=== PATIENT | male | born 1995 | race Hispanic/Latino ===

== ENCOUNTER 2017-05-12 16:53 | Emergency (ER) | payer SELFPAY ==
[~2017-05-12] VITALS: Ht 175.3 cm; Wt 113.4 kg
[~2017-05-12 16:53] MED LIST: AMOX500C2 PO; FAMO-119 PO; ONDA8TAB9 PO
[2017-05-12] MEDS ORDERED: ONDANSETRON 4 MG/2 ML (SDV) Z0FRAN ONE (17:06)
[2017-05-12] MEDS ORDERED: ONDANSETRON 4 MG/2 ML (SDV) Z0FRAN IVP ONE (17:15)
[2017-05-12] MEDS ORDERED: NS IV 1000 ML 1,000 ML IV ONE ×2 (17:57→18:53)
[2017-05-12] MEDS ORDERED: HYOSCYAMINE 0.125 MG (LEVSIN) TAB SL ONE (18:00)
[2017-05-12 18:03] LABS: BASOPHILS % (AUTO) 0 % (0-10); EOSINOPHILS # (AUTO) 0.2 10^3/uL (0.0-0.3); EOSINOPHILS % (AUTO) 2 % (0-10); LYMPHOCYTES # (AUTO) 1.6 X 10^3 (1.0-4.0); LYMPHOCYTES % (AUTO) 19 % (12-44); MEAN CORPUSCULAR HEMOGLOBIN 29 PG (25-34); MEAN CORPUSCULAR HGB CONC 33 G/DL (32-36); MEAN CORPUSCULAR VOLUME 88 FL (80-99); MEAN PLATELET VOLUME 11.7 FL (7.4-10.4); MONOCYTES # (AUTO) 0.8 X 10^3 (0.0-1.0); MONOCYTES % (AUTO) 9 % (0-12); NEUTROPHILS % (AUTO) 70 % (42-75); PLATELET COUNT 290 10^3/uL (130-400); RED BLOOD COUNT 5.46 10^6/uL (4.35-5.85); RED CELL DISTRIBUTION WIDTH 12.8 % (10.0-14.5); WHITE BLOOD COUNT 8.6 10^3/uL (4.3-11.0)
[2017-05-12 18:04] LABS: BILIRUBIN,URINE NEGATIVE (NEGATIVE); KETONES,URINE NEGATIVE (NEGATIVE); LEUKOCYTE ESTERASE ,URINE NEGATIVE (NEGATIVE); NITRITE,URINE NEGATIVE (NEGATIVE); PH,URINE 6 (5-9); PROTEIN,URINE 2+ (NEGATIVE); UROBILINOGEN,URINE NORMAL (NORMAL)
--- NOTE | 2017-05-12 18:05 | ED GI ---
General Chief Complaint: Abdominal/GI Problems Stated Complaint: VOMITING Nursing Triage Note: to ER with reports of nausea, vomiting, diarrhea and abdominal discomfort. Patient reports that it started yesterday. Sepsis Screen: No Definite Risk Source of Information: Patient Exam Limitations: No Limitations (TY COTE) History of Present Illness Time Seen By Provider: 17:33 Initial Comments Apollo Stephens is a 21 year old male presenting to the ED with vomiting and diarrhea. He reports that last night around 8 or 9 he got a headache and his nose started bleeding. The bleeding resolved on its own. He then developed light -headedness, nausea, and vomiting. During the night he vomited repeatedly and had subjective fever with chills and sweats. During the day today he has continued to vomit and has started having diarrhea. He states his muscles feel achy and weak and can't keep food or liquid down. He reports a sharp pain in his left side, especially when vomiting. He had an asthma attack last night during the vomiting and has had to use his inhaler 3 or 4 times since then for shortness of breath. He had some ibuprofen last night, which helped some. He has not had any medications except his inhaler today. He reports eating dinner last night around 5:30 at the [employer] and having fish. He denies urinary symptoms. (TY COTE) Allergies and Home Medications Allergies Coded Allergies: No Known Drug Allergies (Unverified , 09/23/15) Home Medications Ondansetron 4 Mg Tab.rapdis, 4 MG SL Q4H PRN for NAUSEA/VOMITING-1ST LINE, #10 Prescribed by: LEANN HEDRICK on 05/12/17 718 Review of Systems Constitutional: chills, diaphoresis, dizziness, fever (subjective), weakness ( subjective) EENTM: See HPI, Other (nose bleed last night, not bleeding currently) Respiratory: See HPI, Shortness of Air Cardiovascular: Lightheadedness Gastrointestinal: Denies Abdomen Distended, Abdominal Pain (discomfort attributed to vomiting, sharp pain in left side when vomiting) Genitourinary: Denies Burning, Denies Frequency, Flank Pain, Denies Pain Musculoskeletal: other (generalized muscle ache and weakness) Skin: no symptoms reported Psychiatric/Neurological: Tremors (has essential tremor treated with propranolol, worse since becoming sick) Endocrine: No Symptoms Reported Hematologic/Lymphatic: No Symptoms Reported (TY COTE) Past Ggelark-Gbssgh-Fxhtxb Hx Patient Social History Alcohol Use: Denies Use Recreational Drug Use: No Smoking Status: Current Everyday Smoker Type Used: Cigarettes 2nd Hand Smoke Exposure: Yes Recent Foreign Travel: No Contact w/Someone Who Travel: No Recent Infectious Disease Expo: Yes Recent Hopitalizations: No Physical Abuse: No Sexual Abuse: No (TY COTE) Immunizations Up To Date Tetanus Booster (TDap): Less than 5yrs (TY COTE) Seasonal Allergies Seasonal Allergies: No (TY COTE) Surgeries History of Surgeries: No (TY COTE) Respiratory History of Respiratory Disorde: Yes Respiratory Disorders: Asthma (TY COTE) Cardiovascular History of Cardiac Disorders: No (TY COTE) Neurological History of Neurological Disord: Yes (essential tremor) (TY COTE) Gastrointestinal History of Gastrointestinal Di: No (TY COTE) Musculoskeletal History of Musculoskeletal Dis: No (TY COTE) Endocrine History of Endocrine Disorders: No (TY COTE) Cancer History of Cancer: No (TY COTE) Psychosocial History of Psychiatric Problem: No Suicide Risk Score: 0 (TY COTE) Integumentary History of Skin or Integumenta: No (TY COTE) Blood Transfusions History of Blood Disorders: No (TY COTE) Family Medical History Significant Family History: Asthma (siblings), Other Conditions/Hx (mother's side of family including mother and siblings have essential tremor) (TY COTE) Physical Exam Vital Signs VS - Last 72 Hours, by Label 05/12/17 05/12/17 05/12/17 17:20 19:00 20:35 Temp 98.6 99.0 Pulse 88 83 66 Resp 18 18 16 B/P (MAP) 128/86 128/86 Pulse Ox 97 95 94 O2 Delivery Room Air Room Air Room Air (LEANN PARKER MD) Vital Signs Capillary Refill : Less Than 3 Seconds (TY COTE) General Appearance: WD/WN, moderate distress HEENT: other (mucus membranes appear dry, pharynx evaluation deferred due to severe nausea) Respiratory: lungs clear, normal breath sounds, no respiratory distress Cardiovascular: regular rate, rhythm, no gallop, no JVD, no murmur, tachycardia (mild, heart rate in 90s) Gastrointestinal: normal bowel sounds, soft, No distended, No guarding, No rebound, tenderness (left side and lateral LUQ) Back: no CVA tenderness Neurologic/Psychiatric: alert, normal mood/affect, oriented x 3 Skin: normal color, warm/dry (TY COTE) Progress/Results/Core Measures Results/Orders Lab Results Laboratory Tests Test 05/12/17 17:20 Range/Units White Blood Count 8.6 4.3-11.0 10^3/uL Red Blood Count 5.46 4.35-5.85 10^6/uL Hemoglobin 15.9 13.3-17.7 G/DL Hematocrit 48 40-54 % Mean Corpuscular Volume 88 80-99 FL Mean Corpuscular Hemoglobin 29 25-34 PG Mean Corpuscular Hemoglobin Concent 33 32-36 G/DL Red Cell Distribution Width 12.8 10.0-14.5 % Platelet Count 290 130-400 10^3/uL Mean Platelet Volume 11.7 H 7.4-10.4 FL Neutrophils (%) (Auto) 70 42-75 % Lymphocytes (%) (Auto) 19 12-44 % Monocytes (%) (Auto) 9 0-12 % Eosinophils (%) (Auto) 2 0-10 % Basophils (%) (Auto) 0 0-10 % Neutrophils # (Auto) 6.0 1.8-7.8 X 10^3 Lymphocytes # (Auto) 1.6 1.0-4.0 X 10^3 Monocytes # (Auto) 0.8 0.0-1.0 X 10^3 Eosinophils # (Auto) 0.2 0.0-0.3 10^3/uL Basophils # (Auto) 0.0 0.0-0.1 10^3/uL Urine Color YELLOW Urine Clarity CLEAR Urine pH 6 5-9 Urine Specific [place] 1.015 L 1.016-1.022 Urine Protein 2+ H NEGATIVE Urine Glucose (UA) NEGATIVE NEGATIVE Urine Ketones NEGATIVE NEGATIVE Urine Nitrite NEGATIVE NEGATIVE Urine Bilirubin NEGATIVE NEGATIVE Urine Urobilinogen NORMAL NORMAL MG/DL Urine Leukocyte Esterase NEGATIVE NEGATIVE Urine RBC (Auto) NEGATIVE NEGATIVE Urine RBC NONE /HPF Urine WBC NONE /HPF Urine Squamous Epithelial Cells 0-2 /HPF Urine Crystals NONE /LPF Urine Bacteria NONE /HPF Urine Casts NONE /LPF Urine Mucus NEGATIVE /LPF Urine Culture Indicated NO Sodium Level 142 135-145 MMOL/L Potassium Level 4.0 3.6-5.0 MMOL/L Chloride Level 103 98-107 MMOL/L Carbon Dioxide Level 28 21-32 MMOL/L Anion Gap 11 5-14 MMOL/L Blood Urea Nitrogen 11 7-18 MG/DL Creatinine 1.04 0.60-1.30 MG/DL Estimat Glomerular Filtration Rate > 60 BUN/Creatinine Ratio 11 Glucose Level 120 H 70-105 MG/DL Calcium Level 10.0 8.5-10.1 MG/DL Magnesium Level 2.2 1.8-2.4 MG/DL Total Bilirubin 0.4 0.1-1.0 MG/DL Aspartate Amino Transf (AST/SGOT) 27 5-34 U/L Alanine Aminotransferase (ALT/SGPT) 46 0-55 U/L Alkaline Phosphatase 125 40-136 U/L Total Protein 8.6 H 6.4-8.2 GM/DL Albumin 4.9 H 3.2-4.5 GM/DL Lipase 24 8-78 U/L (LEANN PARKER MD) My Orders Orders - LEANN PARKER MD Ondansetron Injection (Zofran Injectio (05/12/17 17:06) Cbc With Automated Diff (05/12/17 17:57) Comprehensive Metabolic Panel (05/12/17 17:57) Magnesium (05/12/17 17:57) Saline Lock/Iv-Start (05/12/17 17:57) Ns Iv 1000 Ml (Sodium Chloride 0.9%) (05/12/17 17:57) Ua Culture If Indicated (05/12/17 17:59) Hyoscyamine Sl Tablet (Levsin Sl Tablet) (05/12/17 18:00) Lipase (05/12/17 18:22) Famotidine Injection (Pepcid Injection) (05/12/17 18:30) Promethazine Injection (Phenergan Injec (05/12/17 18:30) Promethazine Injection (Phenergan Injec (05/12/17 18:22) Ns Iv 1000 Ml (Sodium Chloride 0.9%) (05/12/17 18:53) Ketorolac Injection (Toradol Injection) (05/12/17 19:00) (LEANN PARKER MD) Medications Given in ED (LEANN PARKER MD) Vital Signs/I&O Vital Sign - Last 12Hours 05/12/17 05/12/17 05/12/17 17:20 19:00 20:35 Temp 98.6 99.0 Pulse 88 83 66 Resp 18 18 16 B/P (MAP) 128/86 128/86 Pulse Ox 97 95 94 O2 Delivery Room Air Room Air Room Air (LEANN PARKER MD) Blood Pressure Mean: 100 Progress Note #1: Time: 18:39 Progress Note This patient was seen, interviewed, and examined along with GEN Rashid. I agree with her history and exam. On my exam patient was found to be mildly ill-appearing. Head was normal. Oropharynx was slightly dry. Lungs were clear to auscultation bilaterally. Heart was regular rate and rhythm without murmur. Abdomen was soft with present but decreased bowel sounds. Left upper quadrant and left flank was tender to palpation. Patient also complained of some musculoskeletal pain in his left back and shoulder worsening in recent days. This area is tender to palpation. He also complains of generalized myalgias since last night. Patient received Zofran 8 mg IV for treatment of nausea. He received Levsin for abdominal discomfort and diarrhea. He vomited shortly after receiving the Levsin. Pepcid and Phenergan will be given for further treatment of GI symptoms. Labs are pending. A liter of IV fluids is infusing. Progress Note #2: Time: 18:53 Progress Note Care of this patient is being transitioned to Kelli Cartwright APRN at this time. Patient is receiving IV fluids. A second bag of normal saline will be administered before dismissal. Toradol will be given for his pain. A prescription for Zofran will be provided. (LEANN PARKER MD) Progress Note : Time: 21:00 Progress Note Patient reports mild left upper quadrant pain, nausea has improved. Overall he does feel that he is doing better. Abdominal exam patient has positive bowel sounds 4 quadrants, negative rebound, negative Watson sign, trace tenderness with deep palpation on the right upper quadrant. No tenderness through the remaining quadrants. Discharge planning discussed with the patient, all questions answered. (KELLI CARTWRIGHT) Departure Impression Impression: Primary Impression: Nausea vomiting and diarrhea Additional Impressions: Left sided abdominal pain Headache Qualified Codes: R51 - Headache Disposition: 01 HOME, SELF-CARE Condition: Improved Departure-Patient Inst. Decision time for Depature: 18:55 (LEANN PARKER MD) Referrals: NO,LOCAL PHYSICIAN (PCP/Family) Primary Care Physician Patient Instructions: Acute Abdomen (Belly Pain), Adult (DC) Add. Discharge Instructions: Consume only clear liquids tonight. Start with frequent sips. Gradually advance your diet with small quantities of bland food tomorrow as tolerated. You may use the Zofran (ondansetron) as prescribed for nausea and vomiting. Antacid therapy for the next week or 2 is also suggested. You may use Pepcid ( famotidine) or omeprazole [id number]. Follow-up with your primary care provider or return to the emergency room if symptoms worsen or you are not improving as expected. All discharge instructions reviewed with patient and/or family. Voiced understanding. Scripts Ondansetron (Zofran Odt) 4 Mg Tab.rapdis 4 MG SL Q4H Y for NAUSEA/VOMITING-1ST LINE, #10 TAB Prov: LEANN PARKER MD 05/12/17 TY COTE May 12, 2017 18:05 LEANN PARKER MD May 12, 2017 18:41 KELLI CARTWRIGHT May 12, 2017 20:27
[2017-05-12 18:13] LABS: SQUAMOUS EPITHELIAL CELL,UR 0-2 /HPF
[2017-05-12] MEDS ORDERED: PROMETHAZINE INJ 25 MG/ML (PHENERGAN) AMP ONE (18:22)
[2017-05-12 18:23] LABS: ALANINE AMINOTRANSFERASE 46 U/L (0-55); ALBUMIN 4.9 GM/DL (3.2-4.5); ANION GAP 11 MMOL/L (5-14); ASPARTATE AMINO TRANSFERASE 27 U/L (5-34); BILIRUBIN,TOTAL 0.4 MG/DL (0.1-1.0); BLOOD UREA NITROGEN 11 MG/DL (7-18); BUN/CREATININE RATIO 11; CARBON DIOXIDE 28 MMOL/L (21-32); CHLORIDE 103 MMOL/L (98-107); CREATININE SERUM 1.04 MG/DL (0.60-1.30); GFR ESTIMATED > 60; GLUCOSE 120 MG/DL (70-105); MAGNESIUM 2.2 MG/DL (1.8-2.4); SODIUM 142 MMOL/L (135-145); TOTAL PROTEIN 8.6 GM/DL (6.4-8.2)
[2017-05-12] MEDS ORDERED: FAMOTIDINE 20MG/2ML IV (PEPCID) IVP ONE (18:30)
[2017-05-12] MEDS ORDERED: PROMETHAZINE INJ 25 MG/ML (PHENERGAN) AMP IVP ONE (18:30)
[2017-05-12] MEDS ORDERED: ONDA4TAB8 SL (18:57)
[2017-05-12 19:00] VITALS: BP 128/86
[2017-05-12] MEDS ORDERED: KETOROLAC 30 MG/ML VIAL IVP ONE (19:00)
[2017-05-12] MEDS ORDERED: RX-ONDANSETRON 4 MG ODT (ZOFRAN) PPK #4 PO STA (20:29)
[2017-05-12 20:35] VITALS: BP 123/73
== END 2017-05-12 20:33 | disposition home or self-care (01) ==
LOC: EDUNIT# 16:53 → ER 16:55
DX: R11.2 Nausea with vomiting, unspecified (principal); R19.7 Diarrhea, unspecified; R10.12 Left upper quadrant pain; R51 Headache; J45.909 Unspecified asthma, uncomplicated; F17.210 Nicotine dependence, cigarettes, uncomplicated
CPT/HCPCS: 36415; 80053; 81000; 83690; 83735; 85025; 96361; 96374; 96375

== ENCOUNTER 2018-06-08 16:24 | Emergency (ER) | payer SELFPAY ==
[~2018-06-08] VITALS: Ht 175.3 cm; Wt 106.6 kg
[~2018-06-08 16:24] MED LIST changes: +ONDA4TAB8 SL
[2018-06-08] MEDS ORDERED: LACTATED RINGERS 1,000 ML IV ONE (18:31)
[2018-06-08 18:45] LABS: BILIRUBIN,URINE NEGATIVE (NEGATIVE); CLARITY,URINE CLEAR; COLOR,URINE YELLOW; GLUCOSE, URINE (UA) NEGATIVE (NEGATIVE); KETONES,URINE 1+ (NEGATIVE); LEUKOCYTE ESTERASE ,URINE 1+ (NEGATIVE); NITRITE,URINE NEGATIVE (NEGATIVE); PH,URINE 7 (5-9); PROTEIN,URINE 2+ (NEGATIVE); UROBILINOGEN,URINE 8 MG/DL (NORMAL)
[2018-06-08] MEDS ORDERED: ONDANSETRON 4 MG/2 ML (SDV) Z0FRAN IVP ONE (18:45)
[2018-06-08 18:52] LABS: BASOPHILS % (AUTO) 1 % (0-10); EOSINOPHILS # (AUTO) 0.3 10^3/uL (0.0-0.3); EOSINOPHILS % (AUTO) 5 % (0-10); HEMATOCRIT 46 % (40-54); HEMOGLOBIN 15.5 G/DL (13.3-17.7); LYMPHOCYTES # (AUTO) 1.6 X 10^3 (1.0-4.0); LYMPHOCYTES % (AUTO) 21 % (12-44); MEAN CORPUSCULAR HEMOGLOBIN 29 PG (25-34); MEAN CORPUSCULAR HGB CONC 34 G/DL (32-36); MEAN CORPUSCULAR VOLUME 87 FL (80-99); MEAN PLATELET VOLUME 11.2 FL (7.4-10.4); MONOCYTES # (AUTO) 0.7 X 10^3 (0.0-1.0); MONOCYTES % (AUTO) 9 % (0-12); NEUTROPHILS # (AUTO) 4.8 X 10^3 (1.8-7.8); NEUTROPHILS % (AUTO) 65 % (42-75); PLATELET COUNT 315 10^3/uL (130-400); RED BLOOD COUNT 5.31 10^6/uL (4.35-5.85); RED CELL DISTRIBUTION WIDTH 12.7 % (10.0-14.5); WHITE BLOOD COUNT 7.4 10^3/uL (4.3-11.0)
[2018-06-08 18:54] LABS: WBC,URINE 0-2 /HPF
[2018-06-08 18:55] VITALS: BP_SYST 130; BP_SYST 133; BP_SYST 138; BP_DIAS 75; BP_DIAS 82; BP_DIAS 98
--- NOTE | 2018-06-08 19:09 | Diagnostic Imaging Report ---
INDICATION: Cough with nausea and vomiting. PA and lateral chest. FINDINGS: The lungs are well aerated and clear. Heart is not enlarged. No pulmonary edema. No pneumothorax or pleural effusion. No bony abnormalities. IMPRESSION: Normal PA and lateral chest. Dictated by: Dictated on workstation # [id number]
--- NOTE | 2018-06-08 19:14 | ED General ---
General Chief Complaint: Cough/Cold/Flu Symptoms Stated Complaint: COUGH, V/D Nursing Triage Note: ARRIVED VIA AMB TO ROOM 10. COMPLAINS OF COUGH, N/V/D X1 WEEKS. STATES HE CAN KEEP LIQUIDS DOWN BUT NOT SOLIDS. Nursing Sepsis Screen: No Definite Risk Allergies and Home Medications Allergies Coded Allergies: No Known Drug Allergies (Unverified , 09/23/15) Home Medications Amoxicillin 875 Mg Tablet, 875 MG PO BID Prescribed by: ALISON MASON on 06/08/181950 Fluticasone Propionate 9.9 Ml [place].susp, 2 SPRAYS NS BID Prescribed by: ALISON MASON on 06/08/181950 Guaifenesin/Dextromethorphan 1 Each Tbmp.12hr, 1 EACH PO BID Prescribed by: ALISON MASON on 06/08/181950 Loratadine/Pseudoephedrine 1 Each Tab.er.12h, 1 EACH PO BID Prescribed by: ALISON MASON on 06/08/181950 Ondansetron 4 Mg Tab.rapdis, 4 MG PO Q4H Prescribed by: ALISON MASON on 06/08/181950 Past Fbyksdh-Wooygn-Mqzaoo Hx Patient Social History Alcohol Use: Denies Use Recreational Drug Use: No Smoking Status: Never a Smoker Type Used: Cigarettes 2nd Hand Smoke Exposure: Yes Recent Foreign Travel: No Contact w/Someone Who Travel: No Recent Infectious Disease Expo: No Recent Hopitalizations: No Immunizations Up To Date Tetanus Booster (TDap): Less than 5yrs Seasonal Allergies Seasonal Allergies: No Past Medical History Surgeries: No Respiratory: Yes Asthma Cardiac: No Neurological: Yes (essential tremor) Gastrointestinal: No Musculoskeletal: No Endocrine: No Cancer: No Psychosocial: No Integumentary: No Blood Disorders: No Family Medical History Asthma, Other Conditions/Hx Physical Exam Vital Signs Vital Signs - First Documented 06/08/18 17:21 Temp 99.3 Pulse 95 Resp 16 B/P (MAP) 138/97 (111) Pulse Ox 97 O2 Delivery Room Air Capillary Refill : Less Than 3 Seconds Height, Weight, BMI Height: 5'9.00" Weight: 235lbs. oz. 106.842479qj; BMI Method:Stated Focused Exam Lactate Level 06/08/18 18:40: Lactic Acid Level 0.88 Lactic Acid Level Laboratory Tests Test 06/08/18 18:40 Lactic Acid Level 0.88 MMOL/L (0.50-2.00) Progress/Results/Core Measures Suspected Sepsis Recent Fever Within 48 Hours: No Infection Criteria Present: Suspected New Infection New/Unexplained Altered Menta: No Sepsis Screen: No Definite Risk SIRS Temperature:99.3 Pulse: 100 Respiratory Rate: 16 Laboratory Tests 06/08/18 18:40: White Blood Count 7.4 Blood Pressure 138 /98 Mean: 111 06/08/18 18:40: Lactic Acid Level 0.88 Laboratory Tests 06/08/18 18:40: Creatinine 0.91, Platelet Count 315, Total Bilirubin 0.6 Results/Orders Lab Results Laboratory Tests Test 06/08/18 18:35 06/08/18 18:40 Range/Units Urine Color YELLOW Urine Clarity CLEAR Urine pH 7 5-9 Urine Specific [place] 1.015 L 1.016-1.022 Urine Protein 2+ H NEGATIVE Urine Glucose (UA) NEGATIVE NEGATIVE Urine Ketones 1+ H NEGATIVE Urine Nitrite NEGATIVE NEGATIVE Urine Bilirubin NEGATIVE NEGATIVE Urine Urobilinogen 8 H NORMAL MG/DL Urine Leukocyte Esterase 1+ H NEGATIVE Urine RBC (Auto) NEGATIVE NEGATIVE Urine RBC NONE /HPF Urine WBC 0-2 /HPF Urine Squamous Epithelial Cells 2-5 /HPF Urine Crystals NONE /LPF Urine Bacteria NONE /HPF Urine Casts NONE /LPF Urine Mucus MODERATE H /LPF Urine Culture Indicated NO White Blood Count 7.4 4.3-11.0 10^3/uL Red Blood Count 5.31 4.35-5.85 10^6/uL Hemoglobin 15.5 13.3-17.7 G/DL Hematocrit 46 40-54 % Mean Corpuscular Volume 87 80-99 FL Mean Corpuscular Hemoglobin 29 25-34 PG Mean Corpuscular Hemoglobin Concent 34 32-36 G/DL Red Cell Distribution Width 12.7 10.0-14.5 % Platelet Count 315 130-400 10^3/uL Mean Platelet Volume 11.2 H 7.4-10.4 FL Neutrophils (%) (Auto) 65 42-75 % Lymphocytes (%) (Auto) 21 12-44 % Monocytes (%) (Auto) 9 0-12 % Eosinophils (%) (Auto) 5 0-10 % Basophils (%) (Auto) 1 0-10 % Neutrophils # (Auto) 4.8 1.8-7.8 X 10^3 Lymphocytes # (Auto) 1.6 1.0-4.0 X 10^3 Monocytes # (Auto) 0.7 0.0-1.0 X 10^3 Eosinophils # (Auto) 0.3 0.0-0.3 10^3/uL Basophils # (Auto) 0.0 0.0-0.1 10^3/uL Sodium Level 139 135-145 MMOL/L Potassium Level 3.6 3.6-5.0 MMOL/L Chloride Level 102 98-107 MMOL/L Carbon Dioxide Level 25 21-32 MMOL/L Anion Gap 12 5-14 MMOL/L Blood Urea Nitrogen 12 7-18 MG/DL Creatinine 0.91 0.60-1.30 MG/DL Estimat Glomerular Filtration Rate > 60 BUN/Creatinine Ratio 13 Glucose Level 92 70-105 MG/DL Lactic Acid Level 0.88 0.50-2.00 MMOL/L Calcium Level 9.6 8.5-10.1 MG/DL Corrected Calcium 8.5-10.1 MG/DL Magnesium Level 2.2 1.8-2.4 MG/DL Total Bilirubin 0.6 0.1-1.0 MG/DL Aspartate Amino Transf (AST/SGOT) 25 5-34 U/L Alanine Aminotransferase (ALT/SGPT) 54 0-55 U/L Alkaline Phosphatase 107 40-136 U/L Total Protein 8.1 6.4-8.2 GM/DL Albumin 4.9 H 3.2-4.5 GM/DL Amylase Level 38 25-125 U/L Lipase 20 8-78 U/L Micro Results Microbiology 06/08/18 Influenza Types A,B Antigen (ANA) - Final, Complete My Orders Orders - ALISON MASON DO Saline Lock/Iv-Start (06/08/18 18:31) Monitor-Rhythm Ecg Trace Only (06/08/18 18:31) Orthostatic Vital Signs (Adult (06/08/18 18:) Amylase (06/08/18 18:31) Cbc With Automated Diff (06/08/18 18:) Comprehensive Metabolic Panel (06/08/18 18:) Lactic Acid Analyzer (06/08/18 18:) Lipase (06/08/18 18:31) Magnesium (06/08/18 18:) Ua Culture If Indicated (06/08/18 18:31) Influenza A And B Antigens (06/08/18 18:31) Chest Pa/Lat (2 View) (06/08/18 18:31) Saline Lock/Iv-Start (06/08/18 18:31) Lactated Ringers (Lr 1000 Ml Iv Solution (06/08/18 18:31) Ondansetron Injection (Zofran Injectio (06/08/18 18:45) Medications Given in ED Current Medications Medications Dose Ordered Sig/[place]eba Route Start Time Stop Time Status Last Admin Dose Admin Lactated Ringer's 1,000 ml @ 0 mls/hr Q0M ONCE IV 06/08/18 18:31 06/08/18 18:33 DC 06/08/18 18:44 1,000 MLS/HR Ondansetron HCl 4 mg ONCE ONCE IVP 06/08/18 18:45 06/08/18 18:46 DC 06/08/18 18:44 4 MG Vital Signs/I&O 06/08/18 06/08/18 06/08/18 17:21 18:55 20:41 Temp 99.3 99.2 Pulse 95 88 94 98 100 Resp 16 17 B/P (MAP) 138/97 (111) 130/75 (93) 105/54 (71) 133/82 (99) 138/98 (111) Pulse Ox 97 98 O2 Delivery Room Air Room Air Capillary Refill : Less Than 3 Seconds Blood Pressure Mean: 111 Progress Note : Progress Note NO VOMITING OR DIARRHEA DURING ER STAY Diagnostic Imaging Comments CXR--NO ACUTE PROCESS, PER RADIOLOGIST REPORT @ 1913 Reviewed: Reviewed by Me Departure Impression Primary Impression: Upper respiratory infection Additional Impression: Gastroenteritis Disposition: 01 HOME, SELF-CARE Condition: Stable Departure-Patient Inst. Referrals: HUBERT OTTO APRN (PCP) Primary Care Physician [facility] (Family) Primary Care Physician Patient Instructions: Viral Gastroenteritis, Adult (DC), Bacterial Upper Respiratory Infection, Adult (DC), Viral Upper Respiratory Infection, Adult (DC) Add. Discharge Instructions: LOTS OF CLEAR LIQUIDS--WATER, BROTH, JELLO, GATORADE BRATS DIET--BANANAS, RICE, APPLESAUCE, TOAST, SALTINES TYLENOL AND MOTRIN FOR PAIN OR FEVER FOLLOW UP WITH YOUR DR IN 2-3 DAYS IF NO BETTER All discharge instructions reviewed with patient and/or family. Voiced understanding. Scripts Ondansetron (Zofran Odt) 4 Mg Tab.rapdis 4 MG PO Q4H for Nausea/Vomiting, #10 TAB Prov: ALISON MASON DO 06/08/18 Guaifenesin/Dextromethorphan (Mucinex Dm ER 1,200-60 mg Tab) 1 Each Tbmp.12hr 1 EACH PO BID for 10 Days, #20 EA Prov: ALISON MASON DO 06/08/18 Fluticasone Propionate (Flonase Allergy Relief) 9.9 Ml [place].susp 2 SPRAYS NS BID, #1 SPRAY Prov: ALISON MASON DO 06/08/18 Loratadine/Pseudoephedrine (Claritin-D 12 Hour Tablet) 1 Each Tab.er.12h 1 EACH PO BID, #15 TAB Prov: ALISON MASON DO 06/08/18 Amoxicillin (Amoxicillin) 875 Mg Tablet 875 MG PO BID for INFECTION, #20 TAB Prov: ALISON MASON DO 06/08/18 Work/School Note: Work Release Form Date Seen in the Emergency Department: Jun 08, 2018 Return to Work: Jun 10, 2018 Restrictions: No Restrictions ALISON MASON DO Jun 08, 2018 19:13
[2018-06-08 19:21] LABS: ALANINE AMINOTRANSFERASE 54 U/L (0-55); ALBUMIN 4.9 GM/DL (3.2-4.5); ALKALINE PHOSPHATASE 107 U/L (40-136); AMYLASE 38 U/L (25-125); BILIRUBIN,TOTAL 0.6 MG/DL (0.1-1.0); BUN/CREATININE RATIO 13; CALCIUM 9.6 MG/DL (8.5-10.1); CARBON DIOXIDE 25 MMOL/L (21-32); CHLORIDE 102 MMOL/L (98-107); CREATININE SERUM 0.91 MG/DL (0.60-1.30); GFR ESTIMATED > 60; GLUCOSE 92 MG/DL (70-105); LIPASE 20 U/L (8-78); MAGNESIUM 2.2 MG/DL (1.8-2.4); POTASSIUM 3.6 MMOL/L (3.6-5.0); SODIUM 139 MMOL/L (135-145); TOTAL PROTEIN 8.1 GM/DL (6.4-8.2)
[2018-06-08] MEDS ORDERED: LORA1TAB59 PO (19:51)
[2018-06-08] MEDS ORDERED: ONDA4TAB8 PO (19:51)
[2018-06-08] MEDS ORDERED: FLUT9.9S NS (19:51)
[2018-06-08] MEDS ORDERED: GUAI1TBM19 PO (19:51)
[2018-06-08] MEDS ORDERED: AMOX875T2 PO (19:51)
[2018-06-08 20:41] VITALS: BP 105/54
== END 2018-06-08 20:41 | disposition home or self-care (01) ==
LOC: EDUNIT# 16:24 → ER 16:25
DX: J06.9 Acute upper respiratory infection, unspecified (principal); K52.9 Noninfective gastroenteritis and colitis, unspecified; J45.909 Unspecified asthma, uncomplicated; Z79.51 Long term (current) use of inhaled steroids; Z77.22 Contact with and (suspected) exposure to environmental tobacco smoke (acute) (chronic)
CPT/HCPCS: 36415; 71046; 80053; 81000; 82150; 83605; 83690; 83735; 85025; 87804; 93041; 96361; 96374